=== PATIENT | female | born 1990 | race Caucasian/White ===

== ENCOUNTER 2021-04-01 14:12 | Emergency (ER) | payer SELFPAY ==
[~2021-04-01] VITALS: Ht 165.1 cm; Wt 104.5 kg
[2021-04-01] MEDS ORDERED: magnesium 2GM in 50ml NS 50 ML IV ONE (14:30)
[2021-04-01] MEDS ORDERED: adenosine 3mg/ml 2ml vial IV ONE ×2 (14:30)
[2021-04-01 14:46] LABS: BASOPHILS % (AUTO) 0.4 % (0-1); EOSINOPHILS # (AUTO) 0.1 X10'3 (0-0.9); EOSINOPHILS % (AUTO) 0.5 % (0-6); HEMATOCRIT 42.2 % (35.0-45.0); HEMOGLOBIN 14.3 g/dl (12.0-16.0); LYMPHOCYTES # (AUTO) 1.8 X10'3 (1.1-4.8); LYMPHOCYTES % (AUTO) 13.3 % (21-51); MEAN CORPUSCULAR HGB CONC 33.9 g/dL (33.0-36.5); MEAN CORPUSCULAR VOLUME 85.5 FL (78-98); MEAN PLATELET VOLUME 8.4 FL (7.4-10.4); MONOCYTES # (AUTO) 0.8 X10'3 (0-0.9); MONOCYTES % (AUTO) 5.8 % (2-12); PLATELET COUNT 320 X10'3 (140-440); RED BLOOD COUNT 4.94 X10'6 (4.20-5.60); RED CELL DISTRIBUTION WIDTH 12.7 % (11.5-14.5); WHITE BLOOD COUNT 13.7 X10'3 (4.5-11.0)
--- NOTE | 2021-04-01 14:51 | NUR ---
DR MARIN AT BEDSIDE. ORDERS TO GIVE MAGNESIUM OVER 5 MINUTES.
[2021-04-01 15:02] LABS: ALANINE AMINOTRANSFERASE 21 U/L (12-78); ALBUMIN 4.1 G/DL (3.4-5.0); ALKALINE PHOSPHATASE 73 IU/L (46-116); ANION GAP 15 (8-16); ASPARTATE AMINO TRANSFERASE 19 U/L (10-37); BILIRUBIN,TOTAL 0.4 MG/DL (0.1-1.0); BLOOD UREA NITROGEN 8 MG/DL (7-18); BUN/CREATININE RATIO 8.2 (6.6-38.0); CALCIUM 8.7 MG/DL (8.5-10.1); CHLORIDE 103 MMOL/L (99-107); CREATININE 0.97 MG/DL (0.40-0.90); GLUCOSE 129 MG/DL (70-104); POTASSIUM 3.6 MMOL/L (3.5-5.1); SODIUM 139 MMOL/L (135-145); TOTAL CARBON DIOXIDE 21.3 MMOL/L (24-32); TOTAL PROTEIN 8.1 G/DL (6.4-8.2); eGFR 68 ML/MIN
[2021-04-01] MEDS ORDERED: normal saline 1000ML IV soln IVB ONE (15:15)
[2021-04-01] MEDS ORDERED: metoprolol tartrate 1mg/ml inj IV SCH (15:45)
[2021-04-01 15:48] LABS: MAGNESIUM 1.8 MG/DL (1.5-2.4)
[2021-04-01 16:06] LABS: URINE AMPHETAMINE SCREEN NEGATIVE (Neg); URINE BARBITUATE SCREEN NEGATIVE (Neg); URINE BENZODIAZEPINES SCREEN NEGATIVE (Neg); URINE CANNABINOID SCREEN NEGATIVE (Neg); URINE COCAINE SCREEN NEGATIVE (Neg); URINE METHADONE SCREEN NEGATIVE (Neg); URINE OPIATE SCREEN NEGATIVE (Neg); URINE PHENCYCLIDINE SCREEN NEGATIVE (Neg)
[2021-04-01 16:28] VITALS: BP 131/91
[2021-04-01 16:30] LABS: URINE HCG NEGATIVE (NEG)
[2021-04-01 16:34] LABS: CLARITY,URINE SLIGHTLY CLOUDY (Clear); COLOR,URINE STRAW (Yellow); GLUCOSE, URINE NEGATIVE (Neg); KETONES,URINE NEGATIVE (Neg); LEUKOCYTE ESTERASE ,URINE NEGATIVE (Neg); NITRITES, URINE NEGATIVE (Neg); OCCULT BLOOD,URINE SMALL (Neg); PH,URINE 5.5 (4.8-8.0); PROTEIN,URINE NEGATIVE (Neg); UROBILINOGEN,URINE 0.2 E.U/dL (0.2-1.0)
[2021-04-01] MEDS ORDERED: sotalol 80mg tablet PO ONE (16:35)
[2021-04-01] MEDS ORDERED: SOTA80TA73 PO (16:35)
[2021-04-01 16:36] LABS: UA COLLECTION TYPE CLN CATCH MIDSTREAM
[2021-04-01 16:40] LABS: MUCUS STRANDS MANY /LPF (Neg); SQUAMOUS EPITHELIAL CELL,UR MANY /LPF (FEW)
[2021-04-01 16:41] LABS: WBC,URINE 0-4 /HPF (0-4)
[2021-04-01 16:42] LABS: BACTERIA,URINE 2+ /HPF (Neg); RBC,URINE 0-2 /HPF (0-2)
== END 2021-04-01 16:52 | disposition home or self-care (01) ==
LOC: ER 14:13
DX: I47.1 Supraventricular tachycardia (principal); R00.2 Palpitations; R42 Dizziness and giddiness; Z72.89 Other problems related to lifestyle; Z98.890 Other specified postprocedural states; Z79.899 Other long term (current) drug therapy
CPT/HCPCS: 36415; 71045; 80053; 80305; 81001; 81025; 83735; 83880; 84443; 84484; 85025; 93005; 96374; 96375; 99285; J3475; J7030; J3490